=== PATIENT | female | born 1950 | race Caucasian/White ===

== ENCOUNTER 2017-07-06 20:08 | Emergency (ER) | payer MEDICARE, BC ==
[~2017-07-06 20:08] MED LIST: LEVO75TA3 PO; LISI40TA PO; METF1000 PO; SIMV40TA PO
[2017-07-06 20:21] VITALS: BP 211/109; PULSE 84; RESP 18; TEMP 97.7; O2SAT 99
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
== END 2017-07-06 21:15 | disposition left against medical advice (07) ==
LOC: NED 20:08
DX: I10 Essential (primary) hypertension (principal); R51 Headache; R11.0 Nausea; M19.90 Unspecified osteoarthritis, unspecified site; F41.9 Anxiety disorder, unspecified; E78.00 Pure hypercholesterolemia, unspecified; E11.9 Type 2 diabetes mellitus without complications; E07.9 Disorder of thyroid, unspecified; Z79.899 Other long term (current) drug therapy